=== PATIENT | male | born 1990 | race African-American/Black ===

== ENCOUNTER 2018-02-17 23:39 | Emergency (ER) | payer SELFPAY ==
[~2018-02-17] VITALS: Ht 175.3 cm; Wt 95.3 kg
[2018-02-17 23:43] VITALS: Ht 175.3 cm; Wt 95.3 kg
[2018-02-18 00:13] VITALS: BP 125/79
== END 2018-02-18 00:15 | disposition home or self-care (01) ==
LOC: ED 23:39
DX: J06.9 Acute upper respiratory infection, unspecified (principal); Z88.8 Allergy status to other drugs, medicaments and biological substances